=== PATIENT | male | born 1945 | race Caucasian/White ===

== ENCOUNTER 2017-01-19 07:59 | Day surgery (SDC) | payer MEDICARE ==
[~2017-01-19] VITALS: Ht 170.2 cm; Wt 62.6 kg
[~2017-01-19 07:59] MED LIST: CIPR500T87; CIPR500T87 PO; DOXA4TAB; METR55GE TP; OMEG500C PO; PANT40TA5 PO; SAW160CA2 PO; [UNRECOGNIZED DRUG - OTHER] PO; [UNRECOGNIZED DRUG - OTHER] PO; [UNRECOGNIZED DRUG - OTHER] PO; [UNRECOGNIZED DRUG - REMARK]
[2017-01-19 08:38] VITALS: BP 119/78
[2017-01-19] MEDS ORDERED: LACTATED RINGERS 1,000 ML IV SCH (08:41)
[2017-01-19] MEDS ORDERED: KETOROLAC 30 MG/1 ML ONE (08:55)
[2017-01-19] MEDS ORDERED: PROPOFOL 10 MG/ML, 20ML ONE (08:55)
[2017-01-19] MEDS ORDERED: MIDAZOLAM 1 MG/ML, 2ML ONE (08:58)
[2017-01-19] MEDS ORDERED: HYDROmorphone 1 MG/ML, 1ML IV PRN (09:30)
[2017-01-19] MEDS ORDERED: ALBUTEROL SULFATE 2.5 MG/3 ML NPPB PRN (09:30)
[2017-01-19] MEDS ORDERED: OXYcodone 5 MG/5 ML ORAL.SOL UDC PO PRN (09:30)
[2017-01-19] MEDS ORDERED: FENTANYL PF 100 MCG/2ML IV PRN (09:30)
[2017-01-19] MEDS ORDERED: hydrALAzine 20 MG/ML, 1ML IV PRN (09:30)
[2017-01-19] MEDS ORDERED: PROMETHAZINE 25 MG/ML, 1ML IV PRN (09:30)
[2017-01-19] MEDS ORDERED: MEPERIDINE/PF 25MG/0.5ML IVPush PRN (09:30)
[2017-01-19] MEDS ORDERED: ACETAMINOPHEN 325 MG TABLET PO PRN (09:30)
[2017-01-19] MEDS ORDERED: MIDAZOLAM 1 MG/ML, 2ML IV PRN (09:30)
[2017-01-19] MEDS ORDERED: EPHEDRINE 50 MG/ML, 1ML IVPush PRN (09:30)
[2017-01-19] MEDS ORDERED: ONDANSETRON 2MG/ML, 2ML IVPush PRN (09:30)
[2017-01-19] MEDS ORDERED: LABETALOL 5MG/ML, 20ML IV PRN (09:30)
[2017-01-19] MEDS ORDERED: METOPROLOL 1 MG/ML, 5ML IV PRN (09:30)
== END 2017-01-19 11:15 | disposition home or self-care (01) ==
LOC: OUT 07:59
PROVIDERS: ATTEND Internal Medicine Geriatric Medicine
DX: C15.9 Malignant neoplasm of esophagus, unspecified (principal); K21.9 Gastro-esophageal reflux disease without esophagitis; G62.89 Other specified polyneuropathies
CPT/HCPCS: 43237; 43254; 88305; J1885; J2250; J2704; J7120

== ENCOUNTER → 2017-02-11 | Outpatient (CLI) | payer MEDICARE | END | disposition home or self-care (01) | LOC: ROC 12:22 | PROVIDERS: ATTEND Radiology Radiation Oncology | DX: C15.3 Malignant neoplasm of upper third of esophagus (principal); Z92.3 Personal history of irradiation | CPT/HCPCS: G0463 ==

== ENCOUNTER → 2017-03-09 | Outpatient (CLI) | payer MEDICARE ==
[~2017-03-09] MED LIST changes: +OMNIPAQUE 350 MG/ML, 100ML BOTTLE ONE
== END | disposition home or self-care (01) ==
LOC: CFH 09:11
PROVIDERS: ATTEND Internal Medicine Hematology & Oncology
DX: C15.3 Malignant neoplasm of upper third of esophagus (principal); Z90.49 Acquired absence of other specified parts of digestive tract
CPT/HCPCS: 71260; 74177; Q9967

== ENCOUNTER → 2017-03-09 | Outpatient (CLI) | payer MEDICARE ==
[~2017-03-09] MED LIST changes: -OMNIPAQUE 350 MG/ML, 100ML BOTTLE ONE
== END | disposition home or self-care (01) ==
LOC: PETCFH 09:14
PROVIDERS: ATTEND Internal Medicine Hematology & Oncology
DX: C15.3 Malignant neoplasm of upper third of esophagus (principal)
CPT/HCPCS: 78306; A9503

== ENCOUNTER → 2017-03-17 | Outpatient (CLI) | payer MEDICARE | END | disposition home or self-care (01) | LOC: STAR 07:56 | PROVIDERS: ATTEND Thoracic Surgery (Cardiothoracic Vascular Surgery) | DX: Z02.9 Encounter for administrative examinations, unspecified (principal) ==

== ENCOUNTER 2017-03-24 06:58 | Inpatient (IN) | payer MEDICARE ==
[2017-03-17 08:39] VITALS: BP 120/77
[~2017-03-24] VITALS: Ht 170.2 cm; Wt 70.6 kg
[~2017-03-24 06:58] MED LIST changes: +BUPIVACAINE/PF-EPI 0.5% 1:200K ONE
[2017-03-24] MEDS ORDERED: FENTANYL PF 250 MCG/5ML ONE (07:48)
[2017-03-24] MEDS ORDERED: LACTATED RINGERS 1,000 ML IV SCH (07:49)
[2017-03-24] MEDS ORDERED: MIDAZOLAM 1 MG/ML, 2ML ONE (07:49)
[2017-03-24] MEDS ORDERED: LIDOCAINE 1%, 2ML ONE (07:51)
[2017-03-24] MEDS ORDERED: LIDOCAINE 1%, 2ML SQ PRN (08:00)
[2017-03-24] MEDS ORDERED: HYDROmorphone 2 MG/ML, 1ML ONE (10:27)
[2017-03-24] MEDS ORDERED: PHENYLEPHRINE 10 MG/ML ONE (10:34)
[2017-03-24] MEDS ORDERED: CEFOTETAN 2 GM ONE (10:34)
[2017-03-24] MEDS ORDERED: DEXAMETHASONE 4 MG/ML, 1ML ONE (10:34)
[2017-03-24] MEDS ORDERED: METOPROLOL 1 MG/ML, 5ML ONE (10:34)
[2017-03-24] MEDS ORDERED: KETAMINE 10 MG/ML, 20ML ONE (10:34)
[2017-03-24] MEDS ORDERED: CEFAZOLIN 1,000 MG ONE (10:34)
[2017-03-24] MEDS ORDERED: GLYCOPYRROLATE 0.2MG/1ML ONE (10:34)
[2017-03-24] MEDS ORDERED: PROPOFOL 10 MG/ML, 20ML ONE (10:34)
[2017-03-24] MEDS ORDERED: ONDANSETRON 2MG/ML, 2ML ONE (10:34)
[2017-03-24] MEDS ORDERED: ROCURONIUM 10 MG/ML ONE ×2 (10:34)
[2017-03-24] MEDS ORDERED: NEOSTIGMINE 1 MG/ML, 10ML ONE (10:34)
[2017-03-24] MEDS ORDERED: OXYcodone 5 MG/5 ML ORAL.SOL UDC PO PRN (12:00)
[2017-03-24] MEDS ORDERED: hydrALAzine 20 MG/ML, 1ML IV PRN ×2 (12:00→14:00)
[2017-03-24] MEDS ORDERED: PROMETHAZINE 25 MG/ML, 1ML IV PRN (12:00)
[2017-03-24] MEDS ORDERED: ACETAMINOPHEN 325 MG TABLET PO PRN (12:00)
[2017-03-24] MEDS ORDERED: FENTANYL PF 100 MCG/2ML IV PRN (12:00)
[2017-03-24] MEDS ORDERED: LABETALOL 5MG/ML, 20ML IV PRN (12:00)
[2017-03-24] MEDS ORDERED: MEPERIDINE/PF 25MG/0.5ML IVPush PRN (12:00)
[2017-03-24] MEDS ORDERED: ONDANSETRON 2MG/ML, 2ML IVPush PRN (12:00)
[2017-03-24] MEDS ORDERED: BUPIVACAINE/PF-EPI 0.5% 1:200K ONE (13:53)
[2017-03-24] MEDS ORDERED: HYDROmorphone PCA 30 MG/30 ML IV PRN (14:00)
[2017-03-24] MEDS ORDERED: DIPHENHYDRAMINE 50 MG/ML, 1ML IV PRN (14:00)
[2017-03-24] MEDS ORDERED: HYDROmorphone PCA 30 MG/30 ML ONE (14:11)
[2017-03-24] MEDS ORDERED: HYDROmorphone 1 MG/ML, 1ML ONE (14:13)
[2017-03-24] MEDS: HYDROmorphone 1 MG/ML, 1ML IV PRN ×5 (14:15→16:12)
[2017-03-24 17:14] VITALS: BP 110/61
[2017-03-24] MEDS: POTASSIUM CHLORIDE 20 MEQ in D5%-0.45% NACL 1,000 ML IV SCH (18:25)
[2017-03-24] MEDS: CEFOTETAN PMX 1GM/50ML 50 ML IVPB SCH (18:26)
[2017-03-24 20:33] VITALS: BP 122/74
[2017-03-24] MEDS: ONDANSETRON 2MG/ML, 2ML IVPush PRN (21:32)
[2017-03-25] MEDS: POTASSIUM CHLORIDE 20 MEQ in D5%-0.45% NACL 1,000 ML IV SCH ×3 (02:05→21:07)
[2017-03-25 02:28] VITALS: BP 112/62
[2017-03-25 05:30] LABS: BLOOD UREA NITROGEN 23 mg/dL (7-18)
[2017-03-25] MEDS: CEFOTETAN PMX 1GM/50ML 50 ML IVPB SCH (05:36)
[2017-03-25 08:01] VITALS: BP 116/65
[2017-03-25 15:05] VITALS: BP 108/65
[2017-03-25] MEDS: LORazepam 2 MG/ML, 1ML IV PRN (16:29)
[2017-03-25] MEDS ORDERED: FUROSEMIDE 20 MG/2 ML IV ONE (16:30)
[2017-03-25 18:42] VITALS: BP 110/61
[2017-03-26 03:44] VITALS: BP 125/70
[2017-03-26 05:26] LABS: BLOOD UREA NITROGEN 19 mg/dL (7-18)
[2017-03-26 08:30] VITALS: BP 117/69
[2017-03-26] MEDS: POTASSIUM CHLORIDE 20 MEQ in D5%-0.45% NACL 1,000 ML IV SCH (09:56)
[2017-03-26 13:36] VITALS: BP 117/69
[2017-03-26] MEDS: ENOXAPARIN 40 MG/0.4 ML SQ SCH (14:44)
[2017-03-26] MEDS: LEVOFLOXACIN/PMX 500MG/100ML 100 ML IV SCH (14:44)
[2017-03-26 19:48] VITALS: BP 132/72
[2017-03-27] MEDS: LORazepam 2 MG/ML, 1ML IV PRN (00:19)
[2017-03-27 01:40] VITALS: BP 124/68
[2017-03-27] MEDS: POTASSIUM CHLORIDE 20 MEQ in D5%-0.45% NACL 1,000 ML IV SCH (02:58)
[2017-03-27 08:30] VITALS: BP 109/61
[2017-03-27] MEDS: ENOXAPARIN 40 MG/0.4 ML SQ SCH (13:39)
[2017-03-27] MEDS: LEVOFLOXACIN/PMX 500MG/100ML 100 ML IV SCH (13:39)
[2017-03-27 14:30] VITALS: BP 128/58
[2017-03-27] MEDS ORDERED: OMNIPAQUE 350 MG/ML, 150 ML BOTTLE ONE (15:01)
[2017-03-27 18:55] VITALS: BP 94/56
[2017-03-28] MEDS: POTASSIUM CHLORIDE 20 MEQ in D5%-0.45% NACL 1,000 ML IV SCH ×2 (02:04→22:17)
[2017-03-28 03:00] VITALS: BP 102/67
[2017-03-28 07:35] VITALS: BP 101/65
[2017-03-28 14:00] VITALS: BP 103/66
[2017-03-28] MEDS: LEVOFLOXACIN/PMX 500MG/100ML 100 ML IV SCH (16:22)
[2017-03-28] MEDS: ENOXAPARIN 40 MG/0.4 ML SQ SCH (16:22)
[2017-03-28 20:10] VITALS: BP 100/67
[2017-03-28] MEDS: HYDROcodone/APAP 7.5-325MG/15ML UDC JT PRN (20:56)
[2017-03-29 02:13] VITALS: BP 98/60
[2017-03-29] MEDS: HYDROcodone/APAP 7.5-325MG/15ML UDC JT PRN ×2 (04:16→22:44)
[2017-03-29 05:51] LABS: BLOOD UREA NITROGEN 17 mg/dL (7-18)
[2017-03-29 05:55] LABS: ASPARTATE AMINO TRANSFERASE 13 U/L (15-37)
[2017-03-29 06:45] VITALS: BP 101/60
[2017-03-29] MEDS: KETOROLAC 30 MG/1 ML IV PRN ×2 (09:40→21:30)
[2017-03-29 15:37] VITALS: BP 97/67
[2017-03-29] MEDS: LEVOFLOXACIN/PMX 500MG/100ML 100 ML IV SCH (15:37)
[2017-03-29] MEDS: ENOXAPARIN 40 MG/0.4 ML SQ SCH (16:30)
[2017-03-29] MEDS: POTASSIUM CHLORIDE 20 MEQ in D5%-0.45% NACL 1,000 ML IV SCH (18:37)
[2017-03-29 19:11] VITALS: BP 115/69
[2017-03-30 01:47] VITALS: BP 106/62
[2017-03-30 07:06] VITALS: BP 95/58
[2017-03-30] MEDS ORDERED: OMNIPAQUE 350 MG/ML, 150 ML BOTTLE ONE (08:37)
[2017-03-30] MEDS: HYDROcodone/APAP 7.5-325MG/15ML UDC JT PRN ×2 (13:15→21:12)
[2017-03-30] MEDS: ENOXAPARIN 40 MG/0.4 ML SQ SCH (13:58)
[2017-03-30] MEDS: LEVOFLOXACIN/PMX 500MG/100ML 100 ML IV SCH (14:01)
[2017-03-30 14:03] VITALS: BP 103/62
[2017-03-30 19:05] VITALS: BP 111/72
[2017-03-30] MEDS: POTASSIUM CHLORIDE 20 MEQ in D5%-0.45% NACL 1,000 ML IV SCH (21:12)
[2017-03-31 01:06] VITALS: BP 106/66
[2017-03-31 06:31] VITALS: BP 102/71
[2017-03-31] MEDS: HYDROcodone/APAP 7.5-325MG/15ML UDC JT PRN ×2 (09:09→20:17)
[2017-03-31 12:38] VITALS: BP 99/63
[2017-03-31] MEDS: LEVOFLOXACIN/PMX 500MG/100ML 100 ML IV SCH (12:57)
[2017-03-31] MEDS: ENOXAPARIN 40 MG/0.4 ML SQ SCH (12:57)
[2017-03-31] MEDS ORDERED: MIDAZOLAM 1 MG/ML, 2ML ONE (15:02)
[2017-03-31] MEDS ORDERED: FENTANYL PF 250 MCG/5ML ONE (15:03)
[2017-03-31] MEDS ORDERED: BUPIVACAINE/PF-EPI 0.25% 1:200K ONE (15:03)
[2017-03-31] MEDS ORDERED: CEFAZOLIN 1,000 MG ONE (15:18)
[2017-03-31] MEDS ORDERED: GLYCOPYRROLATE 0.2MG/1ML ONE (15:18)
[2017-03-31] MEDS ORDERED: NEOSTIGMINE 1 MG/ML, 10ML ONE (15:18)
[2017-03-31] MEDS ORDERED: ROCURONIUM 10 MG/ML ONE (15:18)
[2017-03-31] MEDS ORDERED: SUCCINYLCHOLINE 20 MG/ML, 10ML ONE (15:18)
[2017-03-31] MEDS ORDERED: PHENYLEPHRINE 10 MG/ML ONE (15:18)
[2017-03-31] MEDS ORDERED: PROPOFOL 10 MG/ML, 20ML ONE (15:18)
[2017-03-31] MEDS ORDERED: FENTANYL PF 100 MCG/2ML IV PRN (15:30)
[2017-03-31] MEDS ORDERED: METOCLOPRAMIDE 5 MG/ML, 2ML IV PRN (15:30)
[2017-03-31] MEDS ORDERED: LABETALOL 5MG/ML, 20ML IV PRN (15:30)
[2017-03-31] MEDS ORDERED: MEPERIDINE/PF 25MG/0.5ML IVPush PRN (15:30)
[2017-03-31] MEDS ORDERED: ONDANSETRON 2MG/ML, 2ML IVPush PRN (15:30)
[2017-03-31] MEDS ORDERED: PROMETHAZINE 25 MG/ML, 1ML IV PRN (15:30)
[2017-03-31] MEDS ORDERED: hydrALAzine 20 MG/ML, 1ML IV PRN (15:30)
[2017-03-31] MEDS ORDERED: FENTANYL PF 100 MCG/2ML ONE (16:16)
[2017-03-31] MEDS ORDERED: HYDROmorphone 1 MG/ML, 1ML ONE (16:17)
[2017-03-31] MEDS: HYDROmorphone 1 MG/ML, 1ML IV PRN ×2 (16:20→16:44)
[2017-03-31] MEDS ORDERED: ONDANSETRON 2MG/ML, 2ML ONE (16:31)
[2017-03-31] MEDS ORDERED: PROMETHAZINE 25 MG/ML, 1ML ONE (16:31)
[2017-03-31] MEDS: POTASSIUM CHLORIDE 20 MEQ in D5%-0.45% NACL 1,000 ML IV SCH (17:56)
[2017-03-31 19:29] VITALS: BP 107/62
[2017-04-01 00:34] VITALS: BP 104/55
[2017-04-01] MEDS: POTASSIUM CHLORIDE 20 MEQ in D5%-0.45% NACL 1,000 ML IV SCH ×2 (04:06→14:21)
[2017-04-01 05:07] LABS: BLOOD UREA NITROGEN 20 mg/dL (7-18)
[2017-04-01 07:31] VITALS: BP 105/67
[2017-04-01] MEDS: PANTOPRAZOLE 40 MG IV IVPush SCH (09:38)
[2017-04-01] MEDS: HYDROcodone/APAP 7.5-325MG/15ML UDC JT PRN ×2 (09:38→21:25)
[2017-04-01 13:46] VITALS: BP 100/62
[2017-04-01] MEDS: LEVOFLOXACIN/PMX 500MG/100ML 100 ML IV SCH (14:15)
[2017-04-01] MEDS: ENOXAPARIN 40 MG/0.4 ML SQ SCH (14:21)
[2017-04-01 19:45] VITALS: BP 104/64
[2017-04-02] MEDS: POTASSIUM CHLORIDE 20 MEQ in D5%-0.45% NACL 1,000 ML IV SCH ×3 (00:06→21:09)
[2017-04-02 02:42] VITALS: BP 99/61
[2017-04-02 06:43] VITALS: BP 103/69
[2017-04-02] MEDS: PANTOPRAZOLE 40 MG IV IVPush SCH (08:47)
[2017-04-02 12:53] VITALS: BP 102/66
[2017-04-02] MEDS: LEVOFLOXACIN/PMX 500MG/100ML 100 ML IV SCH (13:31)
[2017-04-02] MEDS: ENOXAPARIN 40 MG/0.4 ML SQ SCH (13:32)
[2017-04-02 18:51] VITALS: BP 99/71
[2017-04-02] MEDS: HYDROcodone/APAP 7.5-325MG/15ML UDC JT PRN (21:10)
[2017-04-03 03:00] VITALS: BP 112/73
[2017-04-03] MEDS: POTASSIUM CHLORIDE 20 MEQ in D5%-0.45% NACL 1,000 ML IV SCH ×2 (05:55→17:28)
[2017-04-03 06:42] VITALS: BP 124/74
[2017-04-03] MEDS: PANTOPRAZOLE 40 MG IV IVPush SCH (08:44)
[2017-04-03] MEDS: ONDANSETRON 2MG/ML, 2ML IVPush PRN ×2 (08:44→21:13)
[2017-04-03 12:39] VITALS: BP 117/72
[2017-04-03] MEDS: LEVOFLOXACIN/PMX 500MG/100ML 100 ML IV SCH (13:46)
[2017-04-03] MEDS: ENOXAPARIN 40 MG/0.4 ML SQ SCH (13:48)
[2017-04-03 19:48] VITALS: BP 110/70
[2017-04-03] MEDS: LORazepam 2 MG/ML, 1ML IV PRN (21:13)
[2017-04-04 02:30] VITALS: BP 110/68
[2017-04-04] MEDS: POTASSIUM CHLORIDE 20 MEQ in D5%-0.45% NACL 1,000 ML IV SCH ×2 (03:06→14:20)
[2017-04-04] MEDS: ONDANSETRON 2MG/ML, 2ML IVPush PRN (04:46)
[2017-04-04 07:52] VITALS: BP 102/65
[2017-04-04] MEDS: PANTOPRAZOLE 40 MG IV IVPush SCH (09:07)
[2017-04-04] MEDS: LEVOFLOXACIN/PMX 500MG/100ML 100 ML IV SCH (13:56)
[2017-04-04] MEDS: ENOXAPARIN 40 MG/0.4 ML SQ SCH (13:57)
[2017-04-04 14:06] VITALS: BP 99/61
[2017-04-04 19:07] VITALS: BP 117/71
[2017-04-04] MEDS ORDERED: POTASSIUM CHLORIDE 20 MEQ in D5%-0.45% NACL 1,000 ML IV SCH (22:00)
[2017-04-04] MEDS: HYDROcodone/APAP 7.5-325MG/15ML UDC JT PRN (22:17)
[2017-04-05 01:56] VITALS: BP 109/68
[2017-04-05] MEDS: ONDANSETRON 2MG/ML, 2ML IVPush PRN (03:51)
[2017-04-05] MEDS: METOCLOPRAMIDE 5 MG/ML, 2ML IV SCH ×3 (08:25→20:25)
[2017-04-05] MEDS: PANTOPRAZOLE 40 MG IV IVPush SCH (10:00)
[2017-04-05] MEDS: ENOXAPARIN 40 MG/0.4 ML SQ SCH (13:30)
[2017-04-05] MEDS: LEVOFLOXACIN/PMX 500MG/100ML 100 ML IV SCH (13:30)
[2017-04-05] MEDS: HYDROcodone/APAP 7.5-325MG/15ML UDC JT PRN (20:45)
[2017-04-06] MEDS: METOCLOPRAMIDE 5 MG/ML, 2ML IV SCH ×4 (02:25→21:27)
[2017-04-06 06:30] VITALS: BP 109/67
[2017-04-06] MEDS: PANTOPRAZOLE 40 MG IV IVPush SCH (10:00)
[2017-04-06] MEDS: ENOXAPARIN 40 MG/0.4 ML SQ SCH (14:30)
[2017-04-06 14:42] VITALS: BP 98/60
[2017-04-06] MEDS: LEVOFLOXACIN/PMX 500MG/100ML 100 ML IV SCH (17:33)
[2017-04-06 19:00] VITALS: BP 97/61
[2017-04-07] MEDS: METOCLOPRAMIDE 5 MG/ML, 2ML IV SCH ×2 (02:25→08:51)
[2017-04-07 02:29] VITALS: BP 104/66
[2017-04-07] MEDS: PANTOPRAZOLE 40 MG IV IVPush SCH (08:50)
[2017-04-07 09:44] VITALS: BP 113/72
== END 2017-04-07 13:25 | disposition home health service (06) | DRG 326 ==
LOC: ORIP 06:58 → 3NW 17:03
PROVIDERS: ADMIT Thoracic Surgery (Cardiothoracic Vascular Surgery); ATTEND Thoracic Surgery (Cardiothoracic Vascular Surgery)
PROC: 07B74ZX Excision of Thorax Lymphatic, Percutaneous Endoscopic Approach, Diagnostic (ICD-10-PCS; 2017-03-24)
PROC: 0D1 Gastrointestinal System, Bypass (ICD-10-PCS; 2017-03-24)
PROC: 0DHA3UZ Insertion of Feeding Device into Jejunum, Percutaneous Approach (ICD-10-PCS; 2017-03-24)
PROC: 0DB64ZZ Excision of Stomach, Percutaneous Endoscopic Approach (ICD-10-PCS; 2017-03-24)
PROC: 0DT Gastrointestinal System, Resection (ICD-10-PCS; principal; 2017-03-24 09:00)
PROC: 0DN64ZZ Release Stomach, Percutaneous Endoscopic Approach (ICD-10-PCS; 2017-03-31)
DX: C15.3 Malignant neoplasm of upper third of esophagus (principal); E43 Unspecified severe protein-calorie malnutrition; C16.0 Malignant neoplasm of cardia; K31.1 Adult hypertrophic pyloric stenosis; R13.10 Dysphagia, unspecified; Z68.24 Body mass index [BMI] 24.0-24.9, adult; Z90.49 Acquired absence of other specified parts of digestive tract; K66.0 Peritoneal adhesions (postprocedural) (postinfection); K30 Functional dyspepsia
CPT/HCPCS: 36415; 71010; 74000; 74230; 74241; 80048; 80053; 82040; 85025; 86850; 86900; 86923; 87070; 87205; 88305; 88309; 88331; B4087; C1729; J0690; J1100; J1170; J1650; J1885; J1956; J2250; J2405; J2704; J2710; J3010; J3480; J3490; Q9967; C9113; J0330; J1200; J1940; J2060; J2370; J2765; S0074

== ENCOUNTER → 2017-04-12 | Outpatient (CLI) | payer MEDICARE ==
[~2017-04-12] MED LIST changes: -BUPIVACAINE/PF-EPI 0.5% 1:200K ONE
== END | disposition home or self-care (01) ==
LOC: CFH 12:59
PROVIDERS: ATTEND Thoracic Surgery (Cardiothoracic Vascular Surgery)
DX: R13.10 Dysphagia, unspecified (principal)
CPT/HCPCS: 74247

== ENCOUNTER → 2017-05-27 | Outpatient (CLI) | payer MEDICARE | END | disposition home or self-care (01) | LOC: RAD 09:57 | PROVIDERS: ATTEND Family Medicine | DX: Z51.89 Encounter for other specified aftercare (principal); R13.10 Dysphagia, unspecified; Z48.3 Aftercare following surgery for neoplasm | CPT/HCPCS: 74230 ==

== ENCOUNTER → 2017-08-26 | Outpatient (CLI) | payer MEDICARE ==
[~2017-08-26] MED LIST changes: -SAW160CA2 PO; +SAW160CA4 PO
== END | disposition home or self-care (01) ==
LOC: ROC 08:39
PROVIDERS: ATTEND Radiology Radiation Oncology
DX: C15.3 Malignant neoplasm of upper third of esophagus (principal); J38.00 Paralysis of vocal cords and larynx, unspecified; Z98.890 Other specified postprocedural states
CPT/HCPCS: G0463

== ENCOUNTER 2017-09-17 09:59 | Observation (INO) | payer MEDICARE ==
[~2017-09-17] VITALS: Ht 170.2 cm; Wt 61.4 kg
[2017-09-17 10:40] LABS: HEMATOCRIT 46.8 % (39.2-51.8); HEMOGLOBIN 15.6 g/dL (13.7-18.0); WHITE BLOOD COUNT 7.6 x10^3/uL (3.4-10)
[2017-09-17] MEDS ORDERED: OMEP-110 PO (10:41)
[2017-09-17] MEDS ORDERED: PANT20TA3 PO (10:42)
[2017-09-17 10:52] LABS: BLOOD UREA NITROGEN 15 mg/dL (7-18)
[2017-09-17 10:59] LABS: IS PT STATUS REG ER OR PRE ER? YES
[2017-09-17] MEDS ORDERED: SIMETHICONE DROPS 40 MG/0.6 ML BOTTLE ONE (11:12)
[2017-09-17 11:21] VITALS: BP 123/101
[2017-09-17] MEDS ORDERED: PROPOFOL 10 MG/ML, 20ML ONE (12:09)
[2017-09-17] MEDS ORDERED: ONDANSETRON 2MG/ML, 2ML ONE ×2 (12:09)
[2017-09-17] MEDS ORDERED: FENTANYL PF 100 MCG/2ML ONE (12:09)
[2017-09-17] MEDS ORDERED: MIDAZOLAM 1 MG/ML, 2ML ONE (12:09)
[2017-09-17] MEDS ORDERED: SUCCINYLCHOLINE 20 MG/ML, 10ML ONE (12:09)
[2017-09-17] MEDS ORDERED: MEPERIDINE/PF 25MG/0.5ML IVPush PRN (13:00)
[2017-09-17] MEDS ORDERED: hydrALAzine 20 MG/ML, 1ML IV PRN (13:00)
[2017-09-17] MEDS ORDERED: FENTANYL PF 100 MCG/2ML IV PRN (13:00)
[2017-09-17] MEDS ORDERED: PROMETHAZINE 25 MG/ML, 1ML IV PRN (13:00)
[2017-09-17] MEDS ORDERED: ONDANSETRON 2MG/ML, 2ML IVPush PRN (13:00)
[2017-09-17] MEDS ORDERED: OXYcodone 5 MG/5 ML ORAL.SOL UDC PO PRN (13:00)
[2017-09-17] MEDS ORDERED: HYDROmorphone 1 MG/ML, 1ML IV PRN (13:00)
[2017-09-17] MEDS ORDERED: LABETALOL 5MG/ML, 20ML IV PRN (13:00)
[2017-09-17] MEDS ORDERED: ACETAMINOPHEN 325 MG TABLET PO PRN (13:00)
== END 2017-09-17 17:00 | disposition home or self-care (01) ==
LOC: OR 10:38 → EDIP 11:08
PROVIDERS: ADMIT Internal Medicine; ATTEND Internal Medicine
DX: K22.2 Esophageal obstruction (principal); K31.7 Polyp of stomach and duodenum; K31.84 Gastroparesis; Z85.01 Personal history of malignant neoplasm of esophagus; Z90.49 Acquired absence of other specified parts of digestive tract
CPT/HCPCS: 36415; 43248; 71010; 80048; 82040; 84484; 85025; 85610; 93005; 99285; G0378; J0330; J2250; J2405; J2704; J3010

== ENCOUNTER → 2017-10-01 | Outpatient (CLI) | payer MEDICARE ==
[~2017-10-01] MED LIST changes: +OMEP-110 PO; +PANT20TA3 PO; +[UNRECOGNIZED DRUG - CODE] DT
== END | disposition home or self-care (01) ==
LOC: STAR 11:56
PROVIDERS: ATTEND Specialist
DX: Z01.818 Encounter for other preprocedural examination (principal)
CPT/HCPCS: 93005

== ENCOUNTER 2017-10-12 10:10 | Day surgery (SDC) | payer MEDICARE ==
[~2017-10-12] VITALS: Ht 170.2 cm; Wt 58.6 kg
[2017-10-12 10:34] VITALS: BP 116/73
[2017-10-12] MEDS ORDERED: LACTATED RINGERS 1,000 ML IV SCH (10:37)
[2017-10-12] MEDS ORDERED: LIDOCAINE 1%, 2ML ONE (10:41)
[2017-10-12] MEDS ORDERED: LIDOCAINE 1%, 2ML SQ PRN (11:00)
[2017-10-12] MEDS ORDERED: EPINEPHRINE TOPICAL SOLN 1 MG/ML, 30ML ONE (12:13)
[2017-10-12] MEDS ORDERED: FENTANYL PF 100 MCG/2ML ONE (12:21)
[2017-10-12] MEDS ORDERED: MIDAZOLAM 1 MG/ML, 2ML ONE (12:21)
[2017-10-12] MEDS ORDERED: HYDROmorphone 1 MG/ML, 1ML IV PRN (13:00)
[2017-10-12] MEDS ORDERED: OXYcodone 5 MG/5 ML ORAL.SOL UDC PO PRN (13:00)
[2017-10-12] MEDS ORDERED: MEPERIDINE/PF 25MG/0.5ML IVPush PRN (13:00)
[2017-10-12] MEDS ORDERED: ONDANSETRON 2MG/ML, 2ML IVPush PRN (13:00)
[2017-10-12] MEDS ORDERED: ACETAMINOPHEN 325 MG TABLET PO PRN (13:00)
[2017-10-12] MEDS ORDERED: FENTANYL PF 100 MCG/2ML IV PRN (13:00)
[2017-10-12] MEDS ORDERED: PROPOFOL 10 MG/ML, 20ML ONE (13:13)
== END 2017-10-12 15:05 ==
LOC: OUT 10:10
PROVIDERS: ATTEND Specialist
DX: J38.01 Paralysis of vocal cords and larynx, unilateral (principal); J38.3 Other diseases of vocal cords; J38.5 Laryngeal spasm; Z85.21 Personal history of malignant neoplasm of larynx
CPT/HCPCS: 31570; C1878; J2250; J2704; J3010; J3490; J7120

== ENCOUNTER → 2017-11-03 | Outpatient (CLI) | payer MEDICARE ==
[~2017-11-03] MED LIST changes: +OMNIPAQUE 350 MG/ML, 100ML BOTTLE ONE
== END ==
LOC: CFH 09:13
PROVIDERS: ATTEND Internal Medicine Hematology & Oncology
DX: C15.3 Malignant neoplasm of upper third of esophagus (principal); K57.30 Diverticulosis of large intestine without perforation or abscess without bleeding
CPT/HCPCS: 71260; 74177; 78306; A9503; Q9967

== ENCOUNTER → 2018-02-16 | Outpatient (CLI) | payer MEDICARE ==
[~2018-02-16] MED LIST changes: -OMNIPAQUE 350 MG/ML, 100ML BOTTLE ONE
== END | disposition home or self-care (01) ==
LOC: ROC 10:09
PROVIDERS: ATTEND Radiology Radiation Oncology
DX: Z08 Encounter for follow-up examination after completed treatment for malignant neoplasm (principal); C15.3 Malignant neoplasm of upper third of esophagus
CPT/HCPCS: G0463

== ENCOUNTER 2018-04-01 13:38 | Inpatient (IN) | payer MEDICARE ==
[~2018-04-01] VITALS: Ht 170.2 cm; Wt 51.6 kg
[~2018-04-01 13:38] MED LIST changes: -ESCI10TA PO; -OMEP20CA14 PO; -OMNIPAQUE 350 MG/ML, 100ML BOTTLE ONE
[2018-04-01] MEDS ORDERED: SODIUM CHLORIDE FLUSH 10ML SYR IVF ONE (14:00)
[2018-04-01 14:43] LABS: BASOPHILS # (AUTO) 0.08 x10^3/uL (0-0.1); BASOPHILS % (AUTO) 1 % (0-1); EOSINOPHILS # (AUTO) 0.06 x10^3/uL (0-0.4); EOSINOPHILS % (AUTO) 1 % (1-7); LYMPHOCYTES # (AUTO) 0.73 x10^3/uL (1-3.4); LYMPHOCYTES % (AUTO) 6 % (22-44); MD NO; MEAN CORPUSCULAR HEMOGLOBIN 27.7 pg (27.5-34.5); MEAN CORPUSCULAR HGB CONC 32.5 g/dL (33.2-36.2); MEAN CORPUSCULAR VOLUME 85.2 fL (81-97); MEAN PLATELET VOLUME 9.6 fL (7.4-10.4); MONOCYTES # (AUTO) 0.74 x10^3/uL (0.2-0.8); MONOCYTES % (AUTO) 6 % (2-9); NEUTROPHILS # (AUTO) 10.97 x10^3/uL (1.8-6.8); NEUTROPHILS % (AUTO) 87 % (42-75); PLATELET COUNT 347 x10^3/uL (130-400); RED BLOOD COUNT 4.34 x10^6/uL (4.38-5.82); RED CELL DISTRIBUTION WIDTH 16.7 % (9.4-14.8)
[2018-04-01 14:51] LABS: ALBUMIN 2.9 g/dL (3.4-5.0); ANION GAP 6 mmol/L (5-15); CALCIUM 8.9 mg/dL (8.5-10.1); CHLORIDE 100 mmol/L (98-107)
[2018-04-01 14:55] LABS: ALANINE AMINOTRANSFERASE 57 U/L (12-78); ALKALINE PHOSPHATASE 99 U/L (45-117); BILIRUBIN,TOTAL 1.4 mg/dL (0.2-1.0); CREATININE 0.85 mg/dL (0.7-1.3); TOTAL PROTEIN 7.2 g/dL (6.4-8.2)
[2018-04-01] MEDS ORDERED: SODIUM CHLORIDE 0.9% 1,000 ML IV ONE (15:13)
[2018-04-01] MEDS ORDERED: METRONIDAZOLE PMX 500MG/100ML 100 ML IVPB ONE (15:30)
[2018-04-01] MEDS ORDERED: SODIUM CHLORIDE 0.9% 1,000ML IVBOLUS ONE (15:30)
[2018-04-01] MEDS ORDERED: CIPROFLOXACIN/PMX 400MG/200ML 100 ML IVPB ONE (15:30)
[2018-04-01] MEDS ORDERED: CIPROFLOXACIN/PMX 400MG/200ML 200 ML ONE (15:36)
[2018-04-01] MEDS ORDERED: SODIUM CHLORIDE FLUSH 10ML SYR IVF PRN (17:00)
[2018-04-01] MEDS ORDERED: CEFTRIAXONE PMX 1GM/50ML 50 ML IVPB ONE (17:00)
[2018-04-01] MEDS ORDERED: ONDANSETRON 2MG/ML, 2ML IVPush PRN (17:30)
[2018-04-01] MEDS ORDERED: hydrALAzine 20 MG/ML, 1ML IVPush PRN (17:30)
[2018-04-01] MEDS ORDERED: SODIUM CHLORIDE 0.9%, 500ML IVBOLUS ONE (17:30)
[2018-04-01] MEDS ORDERED: morphine SULFATE 10 MG/ML, 1ML IVPush PRN (17:30)
[2018-04-01 17:57] LABS: MICROSCOPIC INDICATED
[2018-04-01 18:00] LABS: CULTURE INDICATED? YES
[2018-04-01 19:05] VITALS: BP 104/63
[2018-04-01] MEDS ORDERED: OMEP20CA14 PO (19:20)
[2018-04-01] MEDS ORDERED: ESCI10TA PO (19:20)
[2018-04-01] MEDS: D5%-0.45NACL+KCL 20MEQ 1,000 ML IV SCH (20:50)
[2018-04-01] MEDS: PIPERACILLIN/TAZO/PMX 3.375GM 50 ML IV SCH (20:52)
[2018-04-01 21:59] VITALS: BP 104/63
[2018-04-02 00:31] VITALS: BP 107/58
[2018-04-02] MEDS: PIPERACILLIN/TAZO/PMX 3.375GM 50 ML IV SCH ×4 (02:46→21:02)
[2018-04-02 04:53] LABS: BASOPHILS # (AUTO) 0.06 x10^3/uL (0-0.1); BASOPHILS % (AUTO) 1 % (0-1); EOSINOPHILS # (AUTO) 0.17 x10^3/uL (0-0.4); EOSINOPHILS % (AUTO) 2 % (1-7); LYMPHOCYTES # (AUTO) 0.73 x10^3/uL (1-3.4); LYMPHOCYTES % (AUTO) 7 % (22-44); MD NO; MEAN CORPUSCULAR HGB CONC 32.4 g/dL (33.2-36.2); MEAN CORPUSCULAR VOLUME 86.2 fL (81-97); MEAN PLATELET VOLUME 9.1 fL (7.4-10.4); MONOCYTES # (AUTO) 0.68 x10^3/uL (0.2-0.8); MONOCYTES % (AUTO) 7 % (2-9); NEUTROPHILS # (AUTO) 8.64 x10^3/uL (1.8-6.8); NEUTROPHILS % (AUTO) 84 % (42-75); PLATELET COUNT 284 x10^3/uL (130-400); RED BLOOD COUNT 3.89 x10^6/uL (4.38-5.82); RED CELL DISTRIBUTION WIDTH 17.4 % (9.4-14.8)
[2018-04-02 05:03] LABS: ALANINE AMINOTRANSFERASE 42 U/L (12-78); ALBUMIN 2.4 g/dL (3.4-5.0); ANION GAP 7 mmol/L (5-15); CALCIUM 8.5 mg/dL (8.5-10.1); CHLORIDE 106 mmol/L (98-107); CREATININE 0.84 mg/dL (0.7-1.3)
[2018-04-02 05:05] LABS: ALKALINE PHOSPHATASE 82 U/L (45-117); BILIRUBIN,TOTAL 1.5 mg/dL (0.2-1.0); TOTAL PROTEIN 6.2 g/dL (6.4-8.2)
[2018-04-02 06:46] VITALS: BP 109/66
[2018-04-02] MEDS: D5%-0.45NACL+KCL 20MEQ 1,000 ML IV SCH ×2 (07:20→17:55)
[2018-04-02 12:43] VITALS: BP 110/64
[2018-04-02 20:40] VITALS: BP 103/63
[2018-04-03 00:08] VITALS: BP 103/67
[2018-04-03] MEDS: PIPERACILLIN/TAZO/PMX 3.375GM 50 ML IV SCH ×5 (03:12→21:29)
[2018-04-03] MEDS: D5%-0.45NACL+KCL 20MEQ 1,000 ML IV SCH ×2 (04:13→14:01)
[2018-04-03 04:31] LABS: BASOPHILS # (AUTO) 0.07 x10^3/uL (0-0.1); BASOPHILS % (AUTO) 1 % (0-1); EOSINOPHILS # (AUTO) 0.12 x10^3/uL (0-0.4); EOSINOPHILS % (AUTO) 2 % (1-7); LYMPHOCYTES # (AUTO) 0.78 x10^3/uL (1-3.4); LYMPHOCYTES % (AUTO) 12 % (22-44); MD NO; MEAN CORPUSCULAR HEMOGLOBIN 27.6 pg (27.5-34.5); MEAN CORPUSCULAR HGB CONC 32.1 g/dL (33.2-36.2); MEAN CORPUSCULAR VOLUME 85.7 fL (81-97); MEAN PLATELET VOLUME 9.3 fL (7.4-10.4); MONOCYTES # (AUTO) 0.54 x10^3/uL (0.2-0.8); MONOCYTES % (AUTO) 9 % (2-9); NEUTROPHILS % (AUTO) 76 % (42-75); PLATELET COUNT 279 x10^3/uL (130-400); RED BLOOD COUNT 3.83 x10^6/uL (4.38-5.82); RED CELL DISTRIBUTION WIDTH 17.7 % (9.4-14.8)
[2018-04-03 04:35] LABS: ANION GAP 6 mmol/L (5-15); CALCIUM 8.5 mg/dL (8.5-10.1); CHLORIDE 106 mmol/L (98-107)
[2018-04-03 04:36] LABS: CREATININE 0.87 mg/dL (0.7-1.3)
[2018-04-03 06:56] VITALS: BP 104/61
[2018-04-03 12:30] VITALS: BP 93/57
[2018-04-03] MEDS: OMEPRAZOLE 20 MG CAPSULE.DR PO SCH (12:41)
[2018-04-03 19:34] VITALS: BP 98/63
[2018-04-04] MEDS: D5%-0.45NACL+KCL 20MEQ 1,000 ML IV SCH ×3 (00:29→23:51)
[2018-04-04 01:34] VITALS: BP 110/68
[2018-04-04 02:15] LABS: CLOSTRIDIUM DIFFICILE ANTIGEN NEGATIVE; CLOSTRIDIUM DIFFICILE TOXIN NEGATIVE (Negative)
[2018-04-04] MEDS: PIPERACILLIN/TAZO/PMX 3.375GM 50 ML IV SCH ×4 (03:18→21:01)
[2018-04-04 04:37] LABS: BASOPHILS # (AUTO) 0.07 x10^3/uL (0-0.1); BASOPHILS % (AUTO) 1 % (0-1); EOSINOPHILS # (AUTO) 0.11 x10^3/uL (0-0.4); EOSINOPHILS % (AUTO) 1 % (1-7); LYMPHOCYTES # (AUTO) 0.63 x10^3/uL (1-3.4); LYMPHOCYTES % (AUTO) 5 % (22-44); MD NO; MEAN CORPUSCULAR HEMOGLOBIN 28.1 pg (27.5-34.5); MEAN CORPUSCULAR HGB CONC 32.4 g/dL (33.2-36.2); MEAN CORPUSCULAR VOLUME 86.8 fL (81-97); MEAN PLATELET VOLUME 9.4 fL (7.4-10.4); MONOCYTES # (AUTO) 0.66 x10^3/uL (0.2-0.8); MONOCYTES % (AUTO) 6 % (2-9); NEUTROPHILS # (AUTO) 10.33 x10^3/uL (1.8-6.8); NEUTROPHILS % (AUTO) 88 % (42-75); PLATELET COUNT 280 x10^3/uL (130-400); RED BLOOD COUNT 3.88 x10^6/uL (4.38-5.82); RED CELL DISTRIBUTION WIDTH 17.1 % (9.4-14.8)
[2018-04-04 04:41] LABS: ALBUMIN 2.3 g/dL (3.4-5.0); ANION GAP 6 mmol/L (5-15); CALCIUM 8.5 mg/dL (8.5-10.1); CHLORIDE 106 mmol/L (98-107)
[2018-04-04 04:45] LABS: ALANINE AMINOTRANSFERASE 32 U/L (12-78); ALKALINE PHOSPHATASE 76 U/L (45-117); BILIRUBIN,TOTAL 0.9 mg/dL (0.2-1.0); CREATININE 0.89 mg/dL (0.7-1.3); TOTAL PROTEIN 5.9 g/dL (6.4-8.2)
[2018-04-04 06:40] VITALS: BP 104/65
[2018-04-04] MEDS: OMEPRAZOLE 20 MG CAPSULE.DR PO SCH (09:41)
[2018-04-04] MEDS: CITALOPRAM 20 MG TABLET PO SCH (09:42)
[2018-04-04 12:36] VITALS: BP 106/67
[2018-04-04 20:24] VITALS: BP 104/65
[2018-04-05 02:59] VITALS: BP 99/62
[2018-04-05] MEDS: PIPERACILLIN/TAZO/PMX 3.375GM 50 ML IV SCH ×4 (03:17→22:43)
[2018-04-05 04:39] LABS: BASOPHILS # (AUTO) 0.05 x10^3/uL (0-0.1); BASOPHILS % (AUTO) 1 % (0-1); EOSINOPHILS # (AUTO) 0.14 x10^3/uL (0-0.4); EOSINOPHILS % (AUTO) 1 % (1-7); LYMPHOCYTES # (AUTO) 0.59 x10^3/uL (1-3.4); LYMPHOCYTES % (AUTO) 6 % (22-44); MD NO; MEAN CORPUSCULAR HEMOGLOBIN 28.1 pg (27.5-34.5); MEAN CORPUSCULAR HGB CONC 32.8 g/dL (33.2-36.2); MEAN CORPUSCULAR VOLUME 85.8 fL (81-97); MEAN PLATELET VOLUME 9.6 fL (7.4-10.4); MONOCYTES # (AUTO) 0.74 x10^3/uL (0.2-0.8); MONOCYTES % (AUTO) 8 % (2-9); NEUTROPHILS # (AUTO) 8.24 x10^3/uL (1.8-6.8); NEUTROPHILS % (AUTO) 85 % (42-75); PLATELET COUNT 282 x10^3/uL (130-400); RED CELL DISTRIBUTION WIDTH 17.3 % (9.4-14.8)
[2018-04-05 04:47] LABS: ANION GAP 6 mmol/L (5-15); CALCIUM 8.6 mg/dL (8.5-10.1); CHLORIDE 107 mmol/L (98-107); CREATININE 0.79 mg/dL (0.7-1.3)
[2018-04-05 06:44] VITALS: BP 106/66
[2018-04-05] MEDS: OMEPRAZOLE 20 MG CAPSULE.DR PO SCH (08:38)
[2018-04-05] MEDS: CITALOPRAM 20 MG TABLET PO SCH (08:39)
[2018-04-05] MEDS: D5%-0.45NACL+KCL 20MEQ 1,000 ML IV SCH (10:54)
[2018-04-05 12:13] VITALS: BP 109/68
[2018-04-05 20:00] VITALS: BP 99/64
[2018-04-06 02:08] VITALS: BP 96/62
[2018-04-06] MEDS: PIPERACILLIN/TAZO/PMX 3.375GM 50 ML IV SCH ×4 (04:27→23:03)
[2018-04-06 04:46] LABS: BASOPHILS # (AUTO) 0.05 x10^3/uL (0-0.1); BASOPHILS % (AUTO) 1 % (0-1); EOSINOPHILS # (AUTO) 0.16 x10^3/uL (0-0.4); EOSINOPHILS % (AUTO) 2 % (1-7); LYMPHOCYTES # (AUTO) 0.63 x10^3/uL (1-3.4); LYMPHOCYTES % (AUTO) 7 % (22-44); MD NO; MEAN CORPUSCULAR HEMOGLOBIN 27.3 pg (27.5-34.5); MEAN CORPUSCULAR HGB CONC 31.7 g/dL (33.2-36.2); MEAN CORPUSCULAR VOLUME 86.1 fL (81-97); MEAN PLATELET VOLUME 9.5 fL (7.4-10.4); MONOCYTES # (AUTO) 0.71 x10^3/uL (0.2-0.8); MONOCYTES % (AUTO) 7 % (2-9); NEUTROPHILS # (AUTO) 8.16 x10^3/uL (1.8-6.8); NEUTROPHILS % (AUTO) 84 % (42-75); PLATELET COUNT 279 x10^3/uL (130-400); RED BLOOD COUNT 3.88 x10^6/uL (4.38-5.82); RED CELL DISTRIBUTION WIDTH 17.7 % (9.4-14.8)
[2018-04-06 05:00] LABS: ALANINE AMINOTRANSFERASE 29 U/L (12-78); ALBUMIN 2.4 g/dL (3.4-5.0); ANION GAP 6 mmol/L (5-15); CALCIUM 8.2 mg/dL (8.5-10.1); CHLORIDE 106 mmol/L (98-107); CREATININE 0.75 mg/dL (0.7-1.3)
[2018-04-06 05:02] LABS: ALKALINE PHOSPHATASE 76 U/L (45-117); BILIRUBIN,TOTAL 0.5 mg/dL (0.2-1.0)
[2018-04-06 06:42] VITALS: BP 102/65
[2018-04-06] MEDS: OMEPRAZOLE 20 MG CAPSULE.DR PO SCH (09:55)
[2018-04-06] MEDS: CITALOPRAM 20 MG TABLET PO SCH (09:55)
[2018-04-06 12:05] VITALS: BP 100/65
[2018-04-06] MEDS ORDERED: D5%-0.45NACL+KCL 20MEQ 1,000 ML IV SCH (19:10)
[2018-04-06 19:30] VITALS: BP 95/60
[2018-04-07 02:43] VITALS: BP 100/62
[2018-04-07] MEDS: PIPERACILLIN/TAZO/PMX 3.375GM 50 ML IV SCH ×4 (04:30→22:27)
[2018-04-07 04:49] LABS: BASOPHILS # (AUTO) 0.08 x10^3/uL (0-0.1); BASOPHILS % (AUTO) 1 % (0-1); EOSINOPHILS # (AUTO) 0.11 x10^3/uL (0-0.4); EOSINOPHILS % (AUTO) 1 % (1-7); LYMPHOCYTES # (AUTO) 0.61 x10^3/uL (1-3.4); LYMPHOCYTES % (AUTO) 8 % (22-44); MD NO; MEAN CORPUSCULAR HGB CONC 32.5 g/dL (33.2-36.2); MEAN CORPUSCULAR VOLUME 86.1 fL (81-97); MEAN PLATELET VOLUME 9.7 fL (7.4-10.4); MONOCYTES # (AUTO) 0.53 x10^3/uL (0.2-0.8); MONOCYTES % (AUTO) 7 % (2-9); NEUTROPHILS # (AUTO) 6.71 x10^3/uL (1.8-6.8); NEUTROPHILS % (AUTO) 84 % (42-75); PLATELET COUNT 259 x10^3/uL (130-400); RED BLOOD COUNT 3.95 x10^6/uL (4.38-5.82); RED CELL DISTRIBUTION WIDTH 17.1 % (9.4-14.8)
[2018-04-07 05:18] LABS: ALANINE AMINOTRANSFERASE 29 U/L (12-78); ALBUMIN 2.5 g/dL (3.4-5.0); ALKALINE PHOSPHATASE 79 U/L (45-117); BILIRUBIN,TOTAL 0.7 mg/dL (0.2-1.0); CALCIUM 8.4 mg/dL (8.5-10.1); CREATININE 0.81 mg/dL (0.7-1.3); TOTAL PROTEIN 6.4 g/dL (6.4-8.2)
[2018-04-07 05:29] LABS: ANION GAP 7 mmol/L (5-15); CHLORIDE 106 mmol/L (98-107)
[2018-04-07 06:41] VITALS: BP 105/65
[2018-04-07] MEDS: CITALOPRAM 20 MG TABLET PO SCH (10:17)
[2018-04-07] MEDS: OMEPRAZOLE 20 MG CAPSULE.DR PO SCH (10:17)
[2018-04-07 14:03] VITALS: BP 95/60
[2018-04-07 14:23] LABS: INTERNATIONAL NORMALIZED RATIO 1.04 (0.93-1.1); PROTHROMBIN TIME 10.7 Seconds (9.6-11.5)
[2018-04-07 18:33] VITALS: BP 102/63
[2018-04-08 00:38] VITALS: BP 108/67
[2018-04-08] MEDS: PIPERACILLIN/TAZO/PMX 3.375GM 50 ML IV SCH ×4 (04:40→22:28)
[2018-04-08 05:04] LABS: ALANINE AMINOTRANSFERASE 31 U/L (12-78); ALBUMIN 2.7 g/dL (3.4-5.0); ANION GAP 5 mmol/L (5-15); CALCIUM 8.6 mg/dL (8.5-10.1); CHLORIDE 105 mmol/L (98-107)
[2018-04-08 05:07] LABS: HCT (SEDRATE) 38.2 % (39.2-51.8); MEAN CORPUSCULAR HEMOGLOBIN 28.2 pg (27.5-34.5); MEAN CORPUSCULAR HGB CONC 32.4 g/dL (33.2-36.2); MEAN CORPUSCULAR VOLUME 86.9 fL (81-97); MEAN PLATELET VOLUME 9.7 fL (7.4-10.4); PLATELET COUNT 321 x10^3/uL (130-400); RED BLOOD COUNT 4.39 x10^6/uL (4.38-5.82); RED CELL DISTRIBUTION WIDTH 17.4 % (9.4-14.8)
[2018-04-08 05:13] LABS: ALKALINE PHOSPHATASE 96 U/L (45-117); BILIRUBIN,TOTAL 0.8 mg/dL (0.2-1.0); CREATININE 0.86 mg/dL (0.7-1.3); TOTAL PROTEIN 7.1 g/dL (6.4-8.2)
[2018-04-08 05:41] LABS: BASOPHILS # (AUTO) 0.12 x10^3/uL (0-0.1); BASOPHILS % (AUTO) 2 % (0-1); EOSINOPHILS # (AUTO) 0.13 x10^3/uL (0-0.4); EOSINOPHILS % (AUTO) 2 % (1-7); LYMPHOCYTES # (AUTO) 0.83 x10^3/uL (1-3.4); LYMPHOCYTES % (AUTO) 11 % (22-44); MD SCAN; MONOCYTES # (AUTO) 0.54 x10^3/uL (0.2-0.8); MONOCYTES % (AUTO) 7 % (2-9); NEUTROPHILS # (AUTO) 6.17 x10^3/uL (1.8-6.8); NEUTROPHILS % (AUTO) 79 % (42-75)
[2018-04-08 06:28] LABS: SEDIMENTATION RATE 58 mm/hr (0-10)
[2018-04-08 06:29] VITALS: BP 108/63
[2018-04-08] MEDS: CITALOPRAM 20 MG TABLET PO SCH (09:59)
[2018-04-08] MEDS: OMEPRAZOLE 20 MG CAPSULE.DR PO SCH (09:59)
[2018-04-08 12:29] VITALS: BP 96/61
[2018-04-08 20:17] VITALS: BP 96/61
[2018-04-09 03:17] VITALS: BP 96/65
[2018-04-09] MEDS: PIPERACILLIN/TAZO/PMX 3.375GM 50 ML IV SCH ×4 (04:27→22:43)
[2018-04-09 06:34] VITALS: BP 118/70
[2018-04-09] MEDS: CITALOPRAM 20 MG TABLET PO SCH (07:44)
[2018-04-09] MEDS: OMEPRAZOLE 20 MG CAPSULE.DR PO SCH (07:44)
[2018-04-09 12:01] VITALS: BP 91/60
[2018-04-09 19:15] VITALS: BP 105/66
[2018-04-10 00:41] VITALS: BP 121/68
[2018-04-10] MEDS: PIPERACILLIN/TAZO/PMX 3.375GM 50 ML IV SCH ×2 (04:48→12:06)
[2018-04-10 06:20] VITALS: BP 99/66
[2018-04-10] MEDS ORDERED: ACID1GRA3 PO (07:37)
[2018-04-10] MEDS ORDERED: PIPE3.375 IV (07:37)
[2018-04-10] MEDS ORDERED: ACET325T14 PO (07:37)
[2018-04-10] MEDS ORDERED: ONDA4TAB13 SL (07:37)
[2018-04-10] MEDS ORDERED: MORP10VI10 IVPush (07:38)
[2018-04-10] MEDS: CITALOPRAM 20 MG TABLET PO SCH (08:00)
[2018-04-10] MEDS: OMEPRAZOLE 20 MG CAPSULE.DR PO SCH (08:00)
[2018-04-10 14:55] VITALS: BP 97/62
== END 2018-04-10 16:27 | DRG 871 ==
LOC: EDIP 16:42 → ED 17:57 → 3NW 18:55
PROVIDERS: ADMIT Hospitalist; ATTEND Hospitalist
DX: A41.9 Sepsis, unspecified organism (principal); J18.9 Pneumonia, unspecified organism; E43 Unspecified severe protein-calorie malnutrition; K65.1 Peritoneal abscess; K57.20 Diverticulitis of large intestine with perforation and abscess without bleeding; E87.1 Hypo-osmolality and hyponatremia; N32.1 Vesicointestinal fistula; N39.0 Urinary tract infection, site not specified; K63.2 Fistula of intestine; Z68.1 Body mass index [BMI] 19.9 or less, adult; F32.9 Major depressive disorder, single episode, unspecified; E86.0 Dehydration; J38.00 Paralysis of vocal cords and larynx, unspecified; N20.0 Calculus of kidney; Z79.2 Long term (current) use of antibiotics; Z82.49 Family history of ischemic heart disease and other diseases of the circulatory system; Z85.01 Personal history of malignant neoplasm of esophagus; Z86.010 Personal history of colon polyps; Z87.440 Personal history of urinary (tract) infections; Z93.4 Other artificial openings of gastrointestinal tract status; Z90.49 Acquired absence of other specified parts of digestive tract
CPT/HCPCS: 36415; 74176; 80048; 80053; 81001; 83605; 83690; 83735; 84100; 84145; 85025; 85610; 85651; 86140; 87040; 87086; 87324; 99285; J0744; J2405; J2543; J3480; J7030; J7040

== ENCOUNTER → 2018-04-01 | Outpatient (CLI) | payer MEDICARE ==
[~2018-04-01] MED LIST changes: +ESCI10TA PO; +OMEP20CA14 PO; +OMNIPAQUE 350 MG/ML, 100ML BOTTLE ONE
== END | disposition home or self-care (01) ==
LOC: CFH 08:26
PROVIDERS: ATTEND Internal Medicine Hematology & Oncology
DX: C15.3 Malignant neoplasm of upper third of esophagus (principal); I31.3 Pericardial effusion (noninflammatory); K57.20 Diverticulitis of large intestine with perforation and abscess without bleeding; J18.1 Lobar pneumonia, unspecified organism; I70.209 Unspecified atherosclerosis of native arteries of extremities, unspecified extremity
CPT/HCPCS: 71260; 74177; Q9967

== ENCOUNTER → 2018-05-16 | Outpatient (CLI) | payer MEDICARE ==
[~2018-05-16] MED LIST changes: +ACET325T14 PO; +ACID1GRA3 PO; +ESCI10TA PO; +MORP10VI10 IVPush; +OMEP20CA14 PO; +OMNIPAQUE 350 MG/ML, 100ML BOTTLE ONE; +ONDA4TAB13 SL; +PIPE3.375 IV
== END | disposition home or self-care (01) ==
LOC: RAD 09:55
PROVIDERS: ATTEND Surgery
DX: J84.10 Pulmonary fibrosis, unspecified (principal); K57.30 Diverticulosis of large intestine without perforation or abscess without bleeding; N32.1 Vesicointestinal fistula; E43 Unspecified severe protein-calorie malnutrition; Z90.49 Acquired absence of other specified parts of digestive tract; Z85.01 Personal history of malignant neoplasm of esophagus
CPT/HCPCS: 74177; Q9967